=== PATIENT | male | born 1965 | race African-American/Black ===

== ENCOUNTER 2017-04-11 08:38 | Inpatient (IN) | payer OTHER ==
[~2017-04-11] VITALS: Ht 175.3 cm; Wt 84.8 kg
--- NOTE | ~2017-04-11 | EKG ---
[address] [address] ELECTROCARDIOGRAM REPORT Name: ANAND IBRAHIM JR Room #: 311-P ADM IN M.R.#: [id number] Admission: 04/11/17 Attend Phys: Preston Maynard DO Discharge: Date of : 65 Report #: [id number] THIS REPORT FOR: //name// [facility] ED Test Date: 2017-04-11 Test Time: 08:48:10 Pat Name: ANAND IBRAHIM Department: Room: 311 Gender: M Orthopedic Assistant: PINEDA : 1965 Requested By: Dylon Wood Order Number: [id number] MD: Chaim Ivan Measurements Intervals Prospect Rate: 62 P: 35 TX: 137 QRS: -17 QRSD: 91 T: 0 QT: 378 QTc: 384 Interpretive Statements Sinus rhythm Borderline left axis deviation Compared to ECG 02/10/2015 09:14:42 Sinus bradycardia no longer present Electronically Signed On 04-11-2017 21:56:28 CDT by Chaim Ivan [email or web address] <ELECTRONICALLY SIGNED> By: Chaim Ivan MD 04/11/17 2156 7 Chaim Ivan MD /JULIETTE
--- NOTE | ~2017-04-11 | EXE ---
[facility] [address] [place] [address] STRESS ECHOCARDIOGRAM Name: ANAND IBRAHIM JR Room #: 311-P [facility] ..#: [id number] Admission: 04/11/17 Attend Phys: Preston Maynard, Discharge: 04/12/17 Date of : 65 Date of Service: 04/13/17 0823 Report #: [id number] THIS REPORT FOR: //name// APPROVED REPORT Exam: Stress Echocardiogram Indication: Chest pain Patient Location: Echo lab Stress Nurse: Beata Dougherty RN Room #: 311 Status: routine HR: 65 bpm Rhythm: NSR Medical History Medical History: HTN Allergies: No known drug allergies Cardiac Risk Factors: HTN Exercise History: Indeterminate Procedure The patient underwent an Exercise Stress Test using the Garrick Protocol. Blood pressure, heart rate, and EKG were monitored. An Echocardiogram was performed by outside plant technician in four stages in quad fashion. At peak stress, four selected images were obtained and placed side by side with resting images for comparison. Stress Test Details Stress Test: Exercise stress testing was performed using a Garrick protocol. HR Resting HR: 65 bpm Max Heart Rate (APMHR): 169 bpm Max HR Achieved: 155 bpm Target HR (85% APMHR): 143 bpm % of APMHR: 91 Recovery HR: 86 bpm HR response to stress: Normal HR response to stress BP Resting BP: 138/90 mmHg Max BP: 152/88 mmHg Recovery BP: 126/80 mmHg ECG Resting ECG: Sinus Rhythm [facility] [address] [place] [address] STRESS ECHOCARDIOGRAM Name: ANAND IBRAHIM Room #: 311-P [facility].#: [id number] Admission: 04/11/17 Attend Phys: Preston Maynard, Discharge: 04/12/17 Date of : 65 Date of Service: 04/13/17 0823 Report #: [id number] Stress ECG: Sinus Rhythm ST Change: Normal Maximum ST Deviation: 0 mm Arrhythmia: None Clinical Reason for Termination: Maximal effort Stress Symptoms: Abdominal discomfort Exercise duration: 11 min sec Exercise capacity: 13.7 METs Overall Exercise Capacity for Age: Good Angina Score: None Symptoms resolved with caffeine. Stress ECG Conclusion ECG: Non-ischemic Clinical: Non-ischemic Echocardiogram: Non-ischemic Non-ischemic stress echocardiogram Copeland treadmill score predicts low risk for adverse myocardial events. Copeland Treadmill Score is 11.0 which is Low risk. Pre-Stress Echo The resting Echocardiogram showed normal left ventricular contractility with an estimated Ejection Fraction of about >55%. Post-Stress Echo The stress Echocardiogram showed normal left ventricular contractility with an estimated Ejection Fraction of about 65-70%. Clinical Normal augmentation of myocardial wall segments using a 17 segment model. Conclusion No prior study available for comparison. Other Information Study Quality: Good <ELECTRONICALLY SIGNED> By: John Huizar MD, [facility] 04/13/17822 2 2 John Huizar MD, [facility] /INF
[~2017-04-11 08:38] MED LIST: CARISOPRODOL 3350 MG PO; IBUPROFEN 800800 M1 PO; MULTIVITAMINS PO; PAXIL 20 MG TAB20 M1 PO; VALIUM2 MG PO; VITAMIN B COMP1 EACH PO; VITAMIN D1000 UNI1 PO
[2017-04-11 08:39] VITALS: BP 132/96
[2017-04-11 09:27] LABS: ABSOLUTE NEUTROPHILS 3.9 thou/uL (1.4-8.2); BASOPHILS 0.4 % (0.0-2.0); EOSINOPHILS 1.5 % (0.0-3.0); HEMOGLOBIN 14.7 gm/dL (14.0-18.0); LYMPHOCYTES 24.1 % (24.0-44.0); MCH 31.2 pg (26.0-34.0); MCHC 33.4 g/dL (28.0-37.0); MCV 93.3 fL (80.0-100.0); PLATELET COUNT 228 thou/uL (150-400); RBC 4.72 mil/uL (4.50-6.00); RDW 13.5 % (10.5-14.5); WBC 6.1 thou/uL (4.0-11.0)
[2017-04-11 09:28] LABS: MANUAL DIFF NO
[2017-04-11 09:36] LABS: ANION GAP 8 mmol/L (7-16); BUN 19 mg/dL (7-18); CALCIUM 8.6 mg/dL (8.5-10.1); CHLORIDE 106 mmol/L (98-107); CO2 25 mmol/L (21-32); CREATININE 1.2 mg/dL (0.7-1.3); GLUCOSE 121 mg/dL (74-106); POTASSIUM 3.5 mmol/L (3.5-5.1); SODIUM 139 mmol/L (136-145)
[2017-04-11 09:57] LABS: TROPONIN-I < 0.04 ng/mL (<0.04-0.07)
[2017-04-11 09:58] LABS: ALBUMIN 3.4 g/dL (3.4-5.0); DIRECT BILIRUBIN 0.1 mg/dL (<0.1-0.3); TOTAL BILIRUBIN 0.5 mg/dL (<0.1-1.0); TOTAL PROTEIN 6.9 g/dL (6.4-8.2)
[2017-04-11 11:30] VITALS: BP 132/70
[2017-04-11] MEDS ORDERED: NORVASC2.5 MG PO (13:27)
[2017-04-11 16:35] VITALS: BP 139/96
[2017-04-11 20:00] VITALS: BP 129/53; BP 144/92
[2017-04-12] VITALS: BP 118/86
[2017-04-12 04:00] VITALS: BP 122/87
[2017-04-12 04:15] LABS: CHOLESTEROL 152 mg/dL (<200); HDL CHOLESTEROL 78 mg/dL (>40); LDL CHOLESTEROL 66 mg/dL (<100); TC:HDL 1.9 Ratio (Not establshd); TRIGLYCERIDE 41 mg/dL (<150); VLDL 8 mg/dL (<40)
[2017-04-12 04:16] LABS: SERUM ASSESSMENT Clear
[2017-04-12 08:09] VITALS: BP 134/89
[2017-04-12] MEDS ORDERED: NITROGLYCERIN0.4 MG SUBLING (11:30)
[2017-04-12 11:59] VITALS: BP 134/89
== END 2017-04-12 12:18 | disposition home or self-care (01) | DRG 313 ==
LOC: ER 08:38 → 3N 10:51 → EROBS 10:51 → 3N 13:04
PROVIDERS: Emergency Medicine; Nurse Practitioner; Nurse Practitioner Family
DX: R07.89 Other chest pain (principal); I10 Essential (primary) hypertension; K21.9 Gastro-esophageal reflux disease without esophagitis; F17.290 Nicotine dependence, other tobacco product, uncomplicated; F32.9 Major depressive disorder, single episode, unspecified; F41.9 Anxiety disorder, unspecified; Z71.6 Tobacco abuse counseling; Z79.899 Other long term (current) drug therapy; Z82.49 Family history of ischemic heart disease and other diseases of the circulatory system; Z91.14 Patient's other noncompliance with medication regimen
CPT/HCPCS: 10096